=== PATIENT | female | born 1985 | race Caucasian/White ===

== ENCOUNTER 2018-08-18 05:58 | Inpatient (IN) ==
[2018-08-18] MEDS ORDERED: Famotidine 20 MG/2 ML VIAL IVP PRN (06:03)
[2018-08-18] MEDS ORDERED: Naloxone 0.4 MG/ML INJ IVP PRN (06:03)
[2018-08-18] MEDS ORDERED: Metoclopramide 10 MG/2 ML VIAL IVP PRN ×2 (06:03→14:25)
[2018-08-18] MEDS ORDERED: CeFAZolin Premix DUPLEX 2,000 MG/50 ML BAG IVPB ONE (06:03)
[2018-08-18] MEDS ORDERED: Ringers Solution, Lactated 1,000 ML IVC SCH (06:15)
[2018-08-18 06:44] LABS: Basophils % 0.2 %; Eosinophils # 0.1 K/mcL (0.0-0.6); Eosinophils % 0.9 %; Hematocrit 33.4 % (35.3-44.9); Hemoglobin 10.8 g/dL (11.5-15.4); Immature Granulocytes % 0.8 % (0-4); Lymphocytes # 2.9 K/mcL (0.6-4.6); Mean Corpuscular HGB Conc 32.3 g/dL (31.6-35.5); Mean Corpuscular Hemoglobin 26.9 pg (28.0-33.3); Mean Corpuscular Volume 83.3 fL (83.0-100.0); Mean Platelet Volume 10.4 fL (9.4-12.4); Monocytes # 0.8 K/mcL (0.0-1.3); Monocytes % 5.6 %; Neutrophils # 9.8 K/mcL (1.6-8.9); Platelet Count 397 K/mcL (140-400); Red Blood Count 4.01 M/mcL (3.82-4.97); Segmented Neutrophils % 71.5 %
[2018-08-18 06:48] LABS: Amphetamine Screen,Urine Negative ng/mL (Cutoff=1000); Barbiturate Screen,Urine Negative ng/mL (Cutoff=200)
[2018-08-18 06:49] LABS: Benzodiazepines Screen,Urine Negative ng/mL (Cutoff=300); Cannabinoid Screen,Urine Negative ng/mL (Cutoff = 50); Cocaine Screen,Urine Negative ng/mL (Cutoff= 300); Opiate Screen,Urine Negative ng/mL (Cutoff=300); Phencyclidine Screen,Urine Negative ng/mL (Cutoff=25)
--- NOTE | 2018-08-18 07:34 | Anesthesia Evaluation PreOp ---
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: Denies Any Significant HX Other Medical History: GERD, Other (Recent UTI, on Keflex regimen) Anesthesia History: No Prior Anesthetic Complications, Past Anesthesia (laparoscopic cholecystectomy) : Yes Alcohol Use: none Drug use: none Medications and Allergies Cephalexin [Keflex] 500 mg PO BID #14 capsule 08/03/18 [Rx] Lansoprazole [Prevacid] 1 tab PO DAILY 08/18/18 [History] Pnv No.95/Ferrous Fum/Folic AC [ Caplet] 1 tab PO DAILY 08/18/18 [History] Allergy/AdvReac Type Severity Reaction Status Date / Time No Known Allergies Allergy Verified 08/18/18 06:17 - Meds/Allergy Pre-op Review Medications Reviewed: Yes Allergies Reviewed: Yes Beta Blockers on Current Med List: No Anesthesia Results - Labs 08/18/18 06:30 Anesthesia Exam BP 116/76 P 83 R 16 T 97.8 FHT 140s Height: 5'4" Weight: 113.4kg NPO (# of Hours): 8 Pain Scale: 0 Pain Scale Used: Numeric (1 - 10) - HEENT Pupil (Motor): Pupils equal Mallampati: II Teeth: Normal Oral Opening: Greater than 3 - ASSEMBLY INSTRUCTIONS WRITER LOC: Oriented ASSEMBLY INSTRUCTIONS WRITER Motor: Normal RUE, Normal LUE, Normal RLE, Normal LLE, Normal Face ASSEMBLY INSTRUCTIONS WRITER Sensory: Normal: RUE, LUE, RLE, LLE, Face - Cardiac Rhythm: Regular Murmur: None JVD: No Carotid Bruit: No - Pulmonary Breath Sounds: bilateral Clear Respiratory Effort: Symmetrical Anesthesia Assess/Plan ASA Score: 2 Level of consciousness: Cooperative Anesthetic Plan: Spinal Autologous Blood: No Monitoring Plan: Standard Monitors Recovery Plan: PACU
--- NOTE | 2018-08-18 07:43 | History & Physical Report ---
Date of Encounter: 08/18/18 Time of Encounter: 07:42 24 Hour HP Update - Instructions Instructions: If the History and Physical is less than 30 days old and was completed prior to A.M. admission and or procedure and has NOT been updated on calendar day of procedure please complete this update prior to performing procedure. - Update Patient reports changes in Medical Condition: No Changes in examination, assessment, or condition: No Changes in Medication: No Preop tests/diagnostics Reviewed: Yes Surgery Remains Indicated: Yes Consent for Planned Operative Procedure(s) Verified: Yes - Pre-Operative Checklist Preoperative Checklist Indicated: Yes Prophylactic Antibiotic Ordered: Yes Home Medications Include Beta Neena: No Is VTE Prophylaxis Indicated?: Yes
[2018-08-18] MEDS ORDERED: Lidocaine -MPF 1% 5 ML AMPUL ONE (07:44)
[2018-08-18] MEDS ORDERED: Bupivacaine/PF 0.75% in Dex 2 ML AMPUL INFILT ONE (07:45)
[2018-08-18] MEDS ORDERED: *HR* Promethazine 25 MG/ML VIAL IVP PRN (07:46)
[2018-08-18] MEDS ORDERED: *HR* Nalbuphine 10 MG/ML AMPUL IV PRN (07:46)
[2018-08-18] MEDS ORDERED: Acetaminophen IV 1,000 MG/100 ML INFUS..BTL IVPB ONE (07:46)
[2018-08-18] MEDS ORDERED: Ketorolac 30 MG/ML VIAL IVP ONE (07:46)
[2018-08-18] MEDS ORDERED: Ondansetron 4 MG/2 ML VIAL IVP ONE (07:46)
[2018-08-18] MEDS ORDERED: *HR* Meperidine 50 MG/ML SYRINGE IVP PRN (07:46)
[2018-08-18] MEDS ORDERED: *HR* HYDROmorphone (PF) 1 MG/ML SYRINGE IVP PRN ×2 (07:46→14:25)
[2018-08-18] MEDS ORDERED: *HR* Morphine Sulfate/PF 10 MG/10 ML AMPUL ONE (07:51)
[2018-08-18] MEDS ORDERED: Ondansetron 4 MG/2 ML VIAL ONE (08:08)
[2018-08-18] MEDS ORDERED: Dexamethasone 4 MG/ML VIAL ONE (08:08)
--- NOTE | 2018-08-18 08:42 | Anesthesia Procedures ---
Date of Encounter: 08/18/18 Time of Encounter: 07:58 Procedures: Anesthesia - Epidural/Spinal Patient ID/Chart reviewed: Yes Patient examined: Yes OB Eval: Gestational age: 39 OB Eval: : 1 OB Eval: Hx Para: 0 OB Eval: Contractions: Non-stressed pattern Consent Obtained: Yes Supplemental Oxygen: None/Room Air Site Prep: Aseptic Technique, Sterile prep and drape, Povidone-Iodine 1% Patient position: upright Local Anesthetic: Lidocaine 1% Amount of Local Anesthetic used: 3 Interspace Used: L3-L4 Loss of Resistance (PATRICIA): No Blood: No CSF: Yes Paresthesia: No Spinal Needle Gauge: 25 Spinal Dose: Bupivicaine 0.75% 1.6ml with morphine 300mcg Procedure: Intrathecal dose administered 1st pass in upright position following sterile prep and drape. +CSF. VSS Vitals + FHT's: See anesthesia record
--- NOTE | 2018-08-18 09:22 | OB/GYN Procedure Note ---
Section - Date of procedure: 08/18/18 Preop diagnosis: breech Post-op diagnosis: same Procedure: primary low transverse Surgeon: Cuca White Quantitated Blood Loss: 500 Was there an faculty i on call medical assistant present: No Anesthesia Type: Spinal section complications: none Disposition: L&D Recovery Room Specimens: Placenta - Infant (s) A Infant Delivery Date: 08/18/18 Infant Delivery Time: 08:32 Presentation: ray breech Position: unknown Route of delivery: breech extraction Gender: Male Viability: Viable Pounds: 7 Ounces: 5 Gram Weight: 3325 kg at 1 minute: 8 at 5 minutes: 9 Shoulder Dystocia: not encountered Placenta: complete extraction Cord: 3 umbilical vessels - Narrative Narrative: Patient was taken to the operating room and placed in supine position with left uterine displacement following the administration of spinal anesthetic. Skin was then prepped and draped in usual sterile fashion, and a timeout procedure was performed. A Pfannenstiel incision was performed and extended down to the fascial layer until the abdominal cavity was entered. A bladder flap was then gently created with sharp dissection. A low transverse uterine incision was performed and extended bilaterally with bandage scissors. The membranes were then ruptured with clear fluid present. A viable male was delivered from a ray breech presentation with scores of 8 and 9 at 1 and 5 minutes respectively and the infant weighed 7 pounds 5 ounces (332 grams). The cord was clamped and cut, and the infant was handed to the nursery team. A sample of cord blood was obtained and the placenta was manually removed. The uterine cavity was wiped clean with wet lap sponge. The uterine incision was closed in a layered fashion with 0 Vicryl suture in a running locking fashion. Good hemostasis was noted. The Paracolic gutters were then gently wiped clean with wet lap sponge. Inspection was then performed with good hemostasis still noted. The fascial layer was closed with 0 PDS Stratafix suture in a running nonlocking fashion. The subcutaneous layer was irrigated with sterile water and then closed with 4-0 Vicryl suture in a running nonlocking fashion, and continuing to close the skin in a running subcuticular fashion. A piece of Dermabond Prineo mesh was then applied over the incision site. Patient tolerated procedure well, all sponge needle and instrument counts reported as correct. Estimated blood loss was 500 mL. The urine in the Griffith catheter was clear and yellow, and she was taken to recovery room in stable condition.
--- NOTE | 2018-08-18 13:44 | Anesthesia Evaluation Post Op ---
Date of Encounter: 08/18/18 Time of Encounter: 10:00 - Vital Signs Vital Signs: Vital Signs Temperature 97.2 F L 08/18/18 11:55 Pulse Rate 76 08/18/18 11:55 Respiratory Rate 16 08/18/18 11:55 Blood Pressure 138/77 08/18/18 11:55 O2 Sat by Pulse Oximetry 99 08/18/18 11:55 Temperature 97.6 F 08/18/18 13:15 Pulse Rate 75 08/18/18 13:15 Respiratory Rate 16 08/18/18 13:15 Blood Pressure 135/69 08/18/18 13:15 O2 Sat by Pulse Oximetry 98 08/18/18 13:15 - Lungs Lungs: Clear Ascult./Percussion - Airway Airway: Non-obstructed - Cardiovascular Regular Rate - Mental Status Mental Status: Alert & Oriented, Answers Appropriately - Pain Pain Scale: 3 Pain Scale used: Numeric (1 - 10) - Nausea Vomiting Nausea Vomiting: Not Present - Hydration Hydration: NPO, Griffith catheter - Discharge PostOp Status: Transfer Patient to floor
[2018-08-18] MEDS ORDERED: Simethicone 80 MG TAB.CHEW PO PRN (14:25)
[2018-08-18] MEDS ORDERED: Ondansetron 4 MG/2 ML VIAL IVP PRN (14:25)
[2018-08-18] MEDS ORDERED: Oxytocin 20 units/ LR 1000 mL 20 UNIT/1,000 ML BAG IVC SCH (14:25)
[2018-08-18] MEDS: cephALEXin 500 MG CAPSULE PO SCH (21:21)
[2018-08-18] MEDS: *HR* OxyCODONE/APAP 5/325 TABLET PO PRN (23:33)
[2018-08-19] MEDS ORDERED: Ringers Solution, Lactated 1,000 ML ONE (02:33)
[2018-08-19] MEDS: Ibuprofen 600 MG TABLET PO PRN ×3 (06:42→20:47)
[2018-08-19 06:46] LABS: Basophils # 0.1 K/mcL (0.0-0.2); Basophils % 0.3 %; Eosinophils % 0.2 %; Hematocrit 26.8 % (35.3-44.9); Immature Granulocytes % 0.5 % (0-4); Lymphocytes # 3.6 K/mcL (0.6-4.6); Lymphocytes % 20.8 %; Mean Corpuscular HGB Conc 32.5 g/dL (31.6-35.5); Mean Corpuscular Hemoglobin 27.4 pg (28.0-33.3); Mean Corpuscular Volume 84.3 fL (83.0-100.0); Mean Platelet Volume 10.1 fL (9.4-12.4); Monocytes % 5.9 %; Neutrophils # 12.3 K/mcL (1.6-8.9); Platelet Count 318 K/mcL (140-400); Red Blood Count 3.18 M/mcL (3.82-4.97); Red Cell Distribution Width 12.9 % (11.5-14.5); Segmented Neutrophils % 72.3 %
[2018-08-19 06:47] LABS: Hemoglobin 8.7 g/dL (11.5-15.4)
[2018-08-19] MEDS: cephALEXin 500 MG CAPSULE PO SCH ×2 (09:30→20:48)
[2018-08-19] MEDS: *HR* OxyCODONE/APAP 5/325 TABLET PO PRN ×3 (09:31→23:26)
[2018-08-19] MEDS: Prenatal Vit/FA 1 EACH TABLET PO SCH (09:32)
--- NOTE | 2018-08-19 10:09 | OB/GYN Progress Note ---
Date of Encounter: 08/19/18 Time of Encounter: 10:07 - Assessment and Plan (1) Status post primary low transverse section Current Visit: Yes Status: Acute Stable POD#1 Continue current management Plan for discharge tomorrow if continuing to do well. (2) Breast feeding status of mother Current Visit: Yes Status: Acute Child is breast-feeding well mother has no complaints or questions nothing further is needed at this time. Subjective - Subjective Principal diagnosis: Status post day 1 section Interval history: status post day one section due to breech presentation. Patient is doing well that she does have mild abdominal pain but pain medications are helping with the. She has been able to void after having the catheter pulled out. Has not had a bowel movement yet did she has been eating well did eat dinner and breakfast. Baby is breast-feeding well currently having no problems did sleep well throughout the night. Otherwise patient has no other complaints at this time and no other questions. Patient reports: appetite normal, voiding normally, pain well controlled, ambulating normally [place]: doing well Objective - Vital Signs Latest vital signs: Vital Signs Temp Pulse Pulse Resp BP Pulse Ox 08/19/18 08:15 98.3 F 90 16 139/72 98 08/19/18 05:00 97.6 F 89 16 117/66 97 08/18/18 23:59 98.0 F 89 16 133/78 96 08/18/18 21:20 98.9 F 82 82 16 130/88 08/18/18 15:30 97.3 F L 79 79 20 122/74 08/18/18 14:05 98.0 F 92 16 138/78 08/18/18 13:15 97.6 F 75 16 135/69 98 08/18/18 12:45 97.6 F 65 65 20 142/85 08/18/18 11:55 97.2 F L 76 76 16 138/77 99 Intake and Output 08/18/18 08/19/18 08/19/18 23:59 07:59 15:59 Intake Total 500 / 500 500 / 500 Output Total 1000 / 1000 1300 / 1300 600 / 600 Balance -500 / -500 -800 / -800 -600 / -600 Intake: Oral 500 / 500 Other 500 / 500 Output: Urine 600 / 600 Catheter 1000 / 1000 1300 / 1300 Other: Weight 113.6 kg Patient Weight 08/19/18 23:59 Weight 113.6 kg - Exam Lungs: right: normal Chest: Normal S1, Normal S2 Extremities: Present: normal Abdomen: Present: normal appearance, soft. Absent: distention, tenderness Incision: Present: normal, dry, intact, dressed (Dressing in place non- saturated.) Uterus: Present: normal, firm - Labs Labs: Laboratory Results - last 24 hr 08/19/18 06:20 WBC 17.0 H RBC 3.18 L Hgb 8.7 L D Hct 26.8 L MCV 84.3 MCH 27.4 L MCHC 32.5 RDW 12.9 Plt Count 318 MPV 10.1 Immature Gran % 0.5 Seg Neutrophils % 72.3 Lymphocytes % 20.8 Monocytes % 5.9 Eosinophils % 0.2 Basophils % 0.3 Neutrophils # 12.3 H Lymphocytes # 3.6 Monocytes # 1.0 Eosinophils # 0.0 Basophils # 0.1
[2018-08-20] MEDS: Ibuprofen 600 MG TABLET PO PRN ×2 (03:15→09:34)
[2018-08-20] MEDS: Prenatal Vit/FA 1 EACH TABLET PO SCH (09:34)
[2018-08-20 10:30] VITALS: BP 126/71
--- NOTE | 2018-08-20 11:26 | Discharge Summary ---
Date of Encounter: 08/20/18 Time of Encounter: 11:20 - Discharge Diagnosis (1) Status post primary low transverse section Priority: Primary Status: Acute Comments: Pt meeting all post-op milestones and desires discharge home today. (2) Breast feeding status of mother Priority: Secondary Status: Acute - Discharge Medications Prescriptions: RX: OxyCODONE/APAP 5/325 [Percocet 5/325 MG] 1 each PO Q4HR PRN 7 Days #28 tablet PRN Reason: Moderate pain 4-6 RX: Ibuprofen [Motrin] 600 mg PO Q6HR PRN #60 tablet PRN Reason: Cramping RX: Breast Pump [BREAST PUMP] 1 each .ROUTE AD #1 each RX: Docusate [Colace] 100 mg PO BID #60 capsule RX: Ferrous Sulfate 325 mg PO DAILY #30 tablet Home Medications: RX: Cephalexin [Keflex] 500 mg PO BID #14 capsule 08/03/18 [Rx] RX: Lansoprazole [Prevacid] 1 tab PO DAILY 08/18/18 [History] RX: Pnv No.95/Ferrous Fum/Folic AC [ Caplet] 1 tab PO DAILY 08/18/18 [History] RX: Breast Pump [BREAST PUMP] 1 each .ROUTE AD #1 each 08/20/18 [Rx] RX: Docusate [Colace] 100 mg PO BID #60 capsule 08/20/18 [Rx] RX: Ferrous Sulfate 325 mg PO DAILY #30 tablet 08/20/18 [Rx] RX: Ibuprofen [Motrin] 600 mg PO Q6HR PRN #60 tablet 08/20/18 [Rx] RX: OxyCODONE/APAP 5/325 [Percocet 5/325 MG] 1 each PO Q4HR PRN 7 Days #28 tablet 08/20/18 [Rx] RX: Simethicone [Gas-X] 80 mg PO TID PRN tab.chew 08/20/18 [Rx] Allergies/Adverse Reactions: Allergy/AdvReac Type Severity Reaction Status Date / Time No Known Allergies Allergy Verified 08/18/18 06:17 Data Procedures and tests throughout hospitalization: Laboratory Tests 08/18/18 08/18/18 08/19/18 06:20 06:30 06:20 WBC 13.7 H 17.0 H RBC 4.01 3.18 L Hgb 10.8 L 8.7 L D Hct 33.4 L 26.8 L MCV 83.3 84.3 MCH 26.9 L 27.4 L MCHC 32.3 32.5 RDW 13.0 12.9 Plt Count 397 318 MPV 10.4 10.1 Immature Gran % 0.8 0.5 Seg Neutrophils % 71.5 72.3 Lymphocytes % 21.0 20.8 Monocytes % 5.6 5.9 Eosinophils % 0.9 0.2 Basophils % 0.2 0.3 Neutrophils # 9.8 H 12.3 H Lymphocytes # 2.9 3.6 Monocytes # 0.8 1.0 Eosinophils # 0.1 0.0 Basophils # 0.0 0.1 Urine Opiates Screen Negative Ur Barbiturates Screen Negative Ur Phencyclidine Scrn Negative Ur Amphetamines Screen Negative U Benzodiazepines Scrn Negative Urine Cocaine Screen Negative U Marijuana (THC) Screen Negative Ur Drug Screen Interp See Below Date of admission: 08/18/18 06:02 Primary care physician: Haile Small DO Discharging clinician: Nicci Ng Anticipated date of discharge: 08/20/18 - Patient Status Disposition: Home, Self-Care Functional capacity at discharge: independent ambulation Overall status at discharge: patient is progressing back to baseline - Discharge Instructions Follow Up With: Haile Small DO [Primary Care Provider] - Cuca White DO [Partnered Physician] - - Diet and Activity Activity: increase activity as tolerated Diet: regular diet Hospital Course Reason for admission: section Delivery: section Episiotomy: none Laceration: none Other procedures: none complications: none Discharge diagnosis: IUP at term delivered [place] baby: male Hospital course: - Date of procedure: 08/18/18 Preop diagnosis: breech Post-op diagnosis: same Procedure: primary low transverse Surgeon: Cuca White Quantitated Blood Loss: 500 Was there an assistant professor of spanish present: No Anesthesia Type: Spinal section complications: none Disposition: L&D Recovery Room Specimens: Placenta - Infant (s) Infant A Infant Delivery Date: 08/18/18 Infant Delivery Time: 08:32 Presentation: ray breech Position: unknown Route of delivery: breech extraction Gender: Male Viability: Viable Pounds: 7 Ounces: 5 Gram Weight: 3325 kg at 1 minute: 8 at 5 minutes: 9 Shoulder Dystocia: not encountered Placenta: complete extraction Cord: 3 umbilical vessels Time Attestation: Total time spent providing and/or coordinating discharge services: Time Spent: Less than 30 minutes - VTE Documentation of Mechanical Device: Intermittent pneumatic compression device Exam - Constitutional Vitals: Temp Pulse Resp BP Pulse Ox 98.5 F 98 16 126/71 98 08/20/18 10:29 08/20/18 10:08/20/18 10:29 08/20/18 10:08/20/18 10:29 General appearance IM: A&O X 3 - Respiratory Respiratory exam: Present: CTAB - Cardiovascular Cardiovascular exam IM: Present: RRR - GI/Abdominal GI/Abdominal exam IM: soft, no peritoneal signs Incision: intact Additional comments: no s/sx infection, dermabond intact - Uterine Tone: Firm Uterus Position: 1 Finger Below Umbilicus - Extremities Exam Extremities exam IM: Present: pedal edema (1+ bilaterally) - Neurological Exam Neurological exam: normal gait, oriented X3 - Psychiatric Additional comments: reports good mood
== END 2018-08-20 19:45 | disposition home or self-care (01) | DRG 788 ==
LOC: SAMDAY 05:58 → 1NENULAB 06:02 → 1NENUOBS 13:01

== ENCOUNTER → 2020-03-29 03:40 | Observation (INO) | END | disposition home or self-care (01) | LOC: 1NENULAB | PROVIDERS: ADMIT Obstetrics & Gynecology; ATTEND Obstetrics & Gynecology ==

== ENCOUNTER → 2020-04-03 13:15 | Observation (INO) ==
[2020-04-03 11:44] LABS: Basophils % 0.3 %; Eosinophils # 0.1 K/mcL (0.0-0.6); Eosinophils % 0.5 %; Hematocrit 32.1 % (35.3-44.9); Hemoglobin 10.3 g/dL (11.5-15.4); Immature Granulocytes % 0.6 % (0-4); Lymphocytes # 1.9 K/mcL (0.6-4.6); Lymphocytes % 16.1 %; Mean Corpuscular HGB Conc 32.1 g/dL (31.6-35.5); Mean Corpuscular Hemoglobin 26.9 pg (28.0-33.3); Mean Corpuscular Volume 83.8 fL (83.0-100.0); Mean Platelet Volume 10.4 fL (9.4-12.4); Monocytes # 0.5 K/mcL (0.0-1.3); Monocytes % 3.9 %; Neutrophils # 9.4 K/mcL (1.6-8.9); Platelet Count 370 K/mcL (140-400); Red Blood Count 3.83 M/mcL (3.82-4.97); Red Cell Distribution Width 13.8 % (11.5-14.5); Segmented Neutrophils % 78.6 %
[2020-04-03 11:53] LABS: Protein/Creatinine Ratio,Urine 0.12 mg/mg (0.00-0.20)
[2020-04-03 12:04] LABS: Alanine Aminotransferase 8 Units/L (7-52); Aspartate Amino Transferase 9 Units/L (13-39); BUN/Creatinine Ratio 16 (6-26); Blood Urea Nitrogen 8 mg/dL (6-20); Lactate Dehydrogenase 100 Units/L (140-271); Uric Acid 5.9 mg/dL (2.3-7.6); eGFR For African Americans > 60 (> 60); eGFR For Non-African Americans > 60 (> 60)
== END | disposition home or self-care (01) ==
LOC: 1NENULAB
PROVIDERS: ADMIT Student in an Organized Health Care Education/Training Program; ATTEND Student in an Organized Health Care Education/Training Program

== ENCOUNTER → 2020-04-09 03:14 | Observation (INO) ==
[2020-04-09 02:32] LABS: Basophils % 0.2 %; Eosinophils # 0.1 K/mcL (0.0-0.6); Eosinophils % 1.1 %; Hematocrit 31.2 % (35.3-44.9); Hemoglobin 9.9 g/dL (11.5-15.4); Immature Granulocytes % 0.6 % (0-4); Lymphocytes # 2.6 K/mcL (0.6-4.6); Lymphocytes % 23.6 %; Mean Corpuscular HGB Conc 31.7 g/dL (31.6-35.5); Mean Corpuscular Hemoglobin 26.4 pg (28.0-33.3); Mean Corpuscular Volume 83.2 fL (83.0-100.0); Mean Platelet Volume 10.5 fL (9.4-12.4); Monocytes # 0.5 K/mcL (0.0-1.3); Monocytes % 4.7 %; Neutrophils # 7.6 K/mcL (1.6-8.9); Platelet Count 377 K/mcL (140-400); Red Blood Count 3.75 M/mcL (3.82-4.97); Red Cell Distribution Width 13.7 % (11.5-14.5); Segmented Neutrophils % 69.8 %; White Blood Count 10.8 K/mcL (4.3-11.1)
[2020-04-09 02:40] LABS: Protein/Creatinine Ratio,Urine 0.12 mg/mg (0.00-0.20)
[2020-04-09 02:49] LABS: Alanine Aminotransferase 7 Units/L (7-52); Aspartate Amino Transferase 8 Units/L (13-39); BUN/Creatinine Ratio 20 (6-26); Blood Urea Nitrogen 10 mg/dL (6-20); Lactate Dehydrogenase 101 Units/L (140-271); Uric Acid 5.4 mg/dL (2.3-7.6); eGFR For African Americans > 60 (> 60); eGFR For Non-African Americans > 60 (> 60)
== END | disposition home or self-care (01) ==
LOC: 1NENULAB
PROVIDERS: ADMIT Obstetrics & Gynecology; ATTEND Obstetrics & Gynecology